=== PATIENT | female | born 1995 | race Caucasian/White ===

== ENCOUNTER 2022-12-21 14:05 | Inpatient (IN) | payer BC ==
[~2022-12-21 14:05] MED LIST: Bupivacaine/Epinephrine 0.25% 30 ML VIAL ONE
[2022-12-21] MEDS ORDERED: hydrALAZINE 20 MG/ML VIAL SLOW IVP PRN ×3 (15:29→23:43)
[2022-12-21] MEDS ORDERED: Fentanyl 100 MCG/2 ML VIAL SLOW IVP PRN (16:55)
[2022-12-21] MEDS ORDERED: Butorphanol Tartrate 1 MG/ML VIAL SLOW IVP PRN (16:55)
[2022-12-21] MEDS ORDERED: Methylergonovine 0.2 MG/ML VIAL IM PRN (16:55)
[2022-12-21] MEDS ORDERED: Misoprostol 200 MCG TAB PR PRN (16:55)
[2022-12-21] MEDS ORDERED: Diphenoxylate HCl/Atropine Tablet PO PRN (16:55)
[2022-12-21] MEDS ORDERED: Promethazine HCl 25 MG/ML VIAL IM PRN ×2 (16:55→18:41)
[2022-12-21] MEDS ORDERED: Docusate 100 MG CAP PO PRN (16:55)
[2022-12-21] MEDS ORDERED: Ondansetron PF 4 MG/2 ML Vial IVP PRN ×2 (16:55→18:41)
[2022-12-21] MEDS ORDERED: Lidocaine 1% (PF) 30 ML VIAL SC PRN (16:55)
[2022-12-21] MEDS ORDERED: Zolpidem Tartrate 5 MG TAB PO PRN (16:55)
[2022-12-21] MEDS ORDERED: Carboprost 250 MCG/ML AMP IM PRN (16:55)
[2022-12-21] MEDS ORDERED: Tranexamic Acid 1,000 MG/10 ML VIAL IVP PRN (16:55)
[2022-12-21] MEDS ORDERED: NS w/ Oxytocin 30 units 500 ML IV SCH ×2 (17:00)
[2022-12-21 17:01] LABS: Bilirubin Neg (Negative); Blood, Urine 250 (Negative); Glucose, Urine (Dipstick) 100 mg/dL (Negative); Ketone, Urine 5 mg/dL (Negative); Leukocyte 500 (Negative); Nitrite Positive (Negative); Protein, Urine (Dipstick) 100 mg/dl (Neg-Trace); Urobilinogen Normal mg/dL (Less than 2); pH, Urine 6.5 (5.0-9.0)
[2022-12-21 17:09] LABS: Clarity Turbid (Clear)
[2022-12-21 17:27] LABS: CAUTI Indications for Culture Pregnancy; RBC/HPF 21-50 HPF (0-3); WBC/HPF Greater than 50 HPF (0-3)
[2022-12-21 17:28] LABS: Bacteria/HPF 4+ HPF (None Seen); Mucous/LPF 3+ LPF (<2+)
[2022-12-21 17:31] LABS: Urine Culture Reflex Yes Yes
[2022-12-21 17:37] LABS: Hemoglobin 10.9 g/dL (12.0-15.5); Mean Corpuscular HGB CONC 34.2 g/dL (32.0-36.0); Mean Corpuscular Hemoglobin 29.1 pg (27.0-33.0); Mean Corpuscular Volume 85.1 fl (81.6-98.3); Mean Platelet Volume 10.9 fl (7.4-10.4); Platelet Count 179 10x3/uL (150-450); Red Blood Cell (RBC) Count 3.75 10x6/uL (3.90-5.03); White Blood Cell (WBC) Count 11.4 10x3/uL (3.5-10.5)
[2022-12-21 17:39] VITALS: BMI 30.2
[2022-12-21] MEDS ORDERED: Fentanyl 2 mcg/Bup 0.1% Cadd 100 ML ONE (18:01)
[2022-12-21 18:19] LABS: Syphilis Antibody Nonreactive (Nonreactive); Syphilis Antibody Index 0.04 S/CO (<1.00 Non-Reactive)
[2022-12-21 18:20] LABS: HBSAg Index 0.18 S/CO (0-0.99); Hep B Surf Ag - L&D Non-Reactive S/CO (NonReactive)
[2022-12-21] MEDS ORDERED: Moisturizing Cream (Eucerin) 113 GM JAR TOP PRN (18:41)
[2022-12-21] MEDS ORDERED: diphenhydrAMINE 50 MG/ML VIAL IVP PRN (18:41)
[2022-12-21] MEDS ORDERED: Lactated Ringer's 500 ML IV PRN (18:41)
[2022-12-21] MEDS ORDERED: Acetaminophen 325 MG TAB PO PRN (18:41)
[2022-12-21] MEDS ORDERED: Naloxone HCl 0.4 mg/ml Vial IVP PRN ×2 (18:41)
[2022-12-21] MEDS ORDERED: ePHEDrine Sulfate 50 MG/10 ML VIAL SLOW IVP PRN (18:41)
[2022-12-21] MEDS ORDERED: Fentanyl 2 mcg/Bupivacaine 0.1% Cassette 100 ML EPIDURAL SCH (18:45)
[2022-12-21] MEDS ORDERED: Communication Order-Pharmacy FS SCH (18:45)
[2022-12-21] MEDS ORDERED: cefTRIAXone\\ROCEPHIN 1 GM in Sodium Chloride 0.9% 100 ML IVPB SCH (20:00)
[2022-12-21] MEDS ORDERED: diphenhydrAMINE 25 MG CAP PO PRN (23:43)
[2022-12-21] MEDS ORDERED: Bisacodyl 10 MG SUPP PR PRN (23:43)
[2022-12-21] MEDS ORDERED: Lanolin Ointment 7 GM TUBE TOP PRN (23:43)
[2022-12-21] MEDS ORDERED: Preparation H Ointment 28 GM TUBE PR PRN (23:43)
[2022-12-21] MEDS ORDERED: Benzocaine-Menthol 82.5 ML CAN TOP PRN (23:43)
[2022-12-21] MEDS ORDERED: Milk Of Magnesia 30 ML UDCUP PO PRN (23:43)
[2022-12-21] MEDS ORDERED: Boostrix 0.5 ML (Tdap) VIAL (>/=7 yrs of age) IM ONE (23:43)
[2022-12-21] MEDS ORDERED: traMADol HCl 50 MG TAB PO PRN (23:43)
[2022-12-22] MEDS: Ibuprofen 800 MG TAB PO SCH ×3 (04:31→20:04)
[2022-12-22] MEDS ORDERED: Ibuprofen 800 MG TAB PO SCH (06:00)
[2022-12-22] MEDS: Prenatal Vitamin 1 TAB PO SCH (08:29)
[2022-12-22] MEDS: Docusate 100 MG CAP PO SCH ×2 (08:29→20:04)
[2022-12-22] MEDS: Ferrous Sulfate 325 MG TAB PO SCH ×2 (08:43→16:37)
[2022-12-23] MEDS: Ibuprofen 800 MG TAB PO SCH (03:39)
[2022-12-23 07:27] VITALS: BP 108/63; TEMP 98.7
[2022-12-23] MEDS: Docusate 100 MG CAP PO SCH (08:39)
[2022-12-23] MEDS: Prenatal Vitamin 1 TAB PO SCH (08:39)
[2022-12-23] MEDS: Ferrous Sulfate 325 MG TAB PO SCH (08:43)
== END 2022-12-23 12:30 | disposition home or self-care (01) | DRG 806 ==
LOC: CSHLD/OP 14:05 → CSHLD 17:32 → CSHPP 12-22 02:30
PROVIDERS: ADMIT Obstetrics & Gynecology; ATTEND Obstetrics & Gynecology
PROC: 10E0XZZ Delivery of Products of Conception, External Approach (ICD-10-PCS; principal; 2022-12-21)
PROC: 0HQ9XZZ Repair Perineum Skin, External Approach (ICD-10-PCS; 2022-12-21)
DX: O60.14X0 Preterm labor third trimester with preterm delivery third trimester, not applicable or unspecified (principal); N39.0 Urinary tract infection, site not specified; Z37.0 Single live birth; O23.43 Unspecified infection of urinary tract in pregnancy, third trimester; Z3A.36 36 weeks gestation of pregnancy; D64.9 Anemia, unspecified; O99.02 Anemia complicating childbirth; Z79.899 Other long term (current) drug therapy; O70.0 First degree perineal laceration during delivery
CPT/HCPCS: 51702; 81001; 85027; 86780; 86850; 86900; 86901; 87077; 87086; 87186; 87340; 99285; J0696; J2405; J2590; J3490